=== PATIENT | female | born 1970 | race Caucasian/White ===

== ENCOUNTER 2019-07-04 07:49 | Day surgery (SDC) | payer OTHER ==
--- NOTE | 2019-07-03 14:27 | PCM.PREANE ---
Preanesthetic Assessment - Anesthesia/Transfusion/Family Hx Anesthesia History: Prior Anesthesia Without Reaction Family History of Anesthesia Reaction: No Transfusion History: No Prior Transfusion(s) Intubation History: Unknown - Review of Systems General: No Symptoms Pulmonary: No Symptoms (ETOH: occasionally) Cardiovascular: No Symptoms (History of HTN) Gastrointestinal: No Symptoms Neurological: No Symptoms, Headache Other: Reports: Thyroid Problems (Hypothyroid, Chiquita's thyroiditis, thyroid nodule) - Physical Assessment NPO Status Date: 07/03/19 NPO Status Time: 03:00 Vital Signs: HR:86 BP:130/82 Sat:100% Resp:16 Temp:97.9 Height: 1.7 m Weight: 107.501 kg ASA Class: 2 Mental Status: Alert & Oriented x3 Airway Class: Mallampati = 2 Dentition: Reports: Normal Dentition, Caries Thyro-Mental Finger Breadths: 3 Mouth Opening Finger Breadths: 3 ROM/Head Extension: Full Lungs: Clear to Auscultation, Normal Respiratory Effort Cardiovascular: Regular Rate, Regular Rhythm, No Murmurs - Lab Values: All labs reviewed and noted and within acceptable ranges to proceed with scheduled procedure. - Allergies Allergies/Adverse Reactions: Allergies Allergy/AdvReac Type Severity Reaction Status Date / Time No Known Allergies Allergy Verified 07/03/19 14:44 - Anesthesia Plan Pre-Op Medication Ordered: None - Acknowledgements Anesthesia Type Planned: MAC Pt an Appropriate Candidate for the Planned Anesthesia: Yes Alternatives and Risks of Anesthesia Discussed w Pt/Guardian: Yes Pt/Guardian Understands and Agrees with Anesthesia Plan: Yes PreAnesthesia Questionnaire - HOME MEDS Home Medications: Home Meds Cholecalciferol (Vitamin D3) [Vitamin D3] 1,000 unit PO DAILY 07/03/19 [History] Lactobacillus Combination No.4 [Probiotic] 1 cap PO DAILY 07/03/19 [History] Levothyroxine Sodium [Levoxyl] 50 mcg PO DAILY 07/03/19 [History] Losartan Potassium 50 mg PO DAILY 07/03/19 [History] Magnesium 250 mg PO DAILY 07/03/19 [History] Multivitamin [Daily Deanne] 1 tab PO DAILY 07/03/19 [History] Selenium 100 mcg PO DAILY 07/03/19 [History] Thiamine HCl [Vitamin B-1] 100 mg PO DAILY 07/03/19 [History] atorvaSTATin [Lipitor] 10 mg PO DAILY 07/03/19 [History] - CURRENT (IN HOUSE) MEDS Current Meds: Current Medications Lactated Ringer's (Ringers, Lactated) 1,000 mls @ 125 mls/hr IV ASDIRECTED MATTI Stop: 07/04/19 23:00 Lidocaine/Sodium Bicarbonate (Buffered Lidocaine 1% In Ns 8.4%) 0.25 ml IDERM ONETIME PRN PRN Reason: Prior to IV Start Stop: 07/04/19 18:00 Sodium Chloride (Saline Flush) 10 ml FLUSH ASDIRECTED PRN PRN Reason: Keep Vein Open Stop: 07/04/19 18:00
[~2019-07-04 07:49] MED LIST: Lactated Ringers 1,000 ML IV SCH; Lidocaine 1% 6 ML ONE; Lidocaine 1%/Sod Bicarbonate in NS 8.4% 1 ML Syringe IDERM PRN; Propofol 200 MG/20 ML SDV ONE; Sodium Chloride 0.9% 10 ML Syringe FLUSH PRN; fentaNYL 100 MCG/2 ML SDV ONE
--- NOTE | 2019-07-04 07:58 | PCM.HP.2 ---
H&P History of Present Illness - General Date of Service: 07/04/19 Admit Problem/Dx: due for screening colonoscopy History Limitations: Reports: No Limitations - History of Present Illness Other HPI/Comments: no interval change since clinic visit last month- presents today for routine screening colonoscopy. - Related Data Allergies/Adverse Reactions: Allergies Allergy/AdvReac Type Severity Reaction Status Date / Time No Known Allergies Allergy Verified 07/03/19 14:44 Home Medications: Home Meds Cholecalciferol (Vitamin D3) [Vitamin D3] 1,000 unit PO DAILY 07/03/19 [History] Lactobacillus Combination No.4 [Probiotic] 1 cap PO DAILY 07/03/19 [History] Levothyroxine Sodium [Levoxyl] 50 mcg PO DAILY 07/03/19 [History] Losartan Potassium 50 mg PO DAILY 07/03/19 [History] Magnesium 250 mg PO DAILY 07/03/19 [History] Multivitamin [Daily Deanne] 1 tab PO DAILY 07/03/19 [History] Selenium 100 mcg PO DAILY 07/03/19 [History] Thiamine HCl [Vitamin B-1] 100 mg PO DAILY 07/03/19 [History] atorvaSTATin [Lipitor] 10 mg PO DAILY 07/03/19 [History] Past Medical History HEENT History: Reports: Impaired Vision Other HEENT History: wears glasses Cardiovascular History: Reports: High Cholesterol, Hypertension Respiratory History: Reports: None Gastrointestinal History: Reports: None Genitourinary History: Reports: Other (See Below) Other Genitourinary History: right breast mass, breast nodule, menorrhagia GANG RIDER History: Reports: Endometrial Ablation, Musculoskeletal History: Reports: None Neurological History: Reports: None Psychiatric History: Reports: None Endocrine/Metabolic History: Reports: Other (See Below) Other Endocrine/Metabolic History: hashimotos thyroiditis, thyroid nodule, thyromegaly Hematologic History: Reports: None Immunologic History: Reports: None Oncologic (Cancer) History: Reports: None Dermatologic History: Reports: Other (See Below) Other Dermatologic History: skin mass - Past Surgical History Head Surgeries/Procedures: Reports: None Cardiovascular Surgical History: Reports: None Respiratory Surgical History: Reports: None GI Surgical History: Reports: None Female Surgical History: Reports: Section Male Surgical History: Reports: None Endocrine Surgical History: Reports: None Neurological Surgical History: Reports: None Musculoskeletal Surgical History: Reports: None Oncologic Surgical History: Reports: None Dermatological Surgical History: Reports: None Social & Family History - Tobacco Use Smoking Status *Q: Never Smoker - Caffeine Use Caffeine Use: Reports: Coffee - Recreational Drug Use Recreational Drug Use: No Drug Use in Last 12 Months: No H&P Review of Systems - Review of Systems: Review Of Systems: See Below General: Reports: No Symptoms HEENT: Reports: No Symptoms Pulmonary: Reports: No Symptoms Cardiovascular: Reports: No Symptoms Gastrointestinal: Reports: No Symptoms Skin: Reports: No Symptoms Psychiatric: Reports: No Symptoms Neurological: Reports: No Symptoms Exam - Exam Exam: See Below - Exam General: Alert, Oriented HEENT: Conjunctiva Clear Neck: Supple Lungs: Clear to Auscultation Cardiovascular: Regular Rate Back Exam: Normal Inspection Extremities: Normal Inspection Skin: Warm, Dry Neuro Extensive - Mental Status: Alert, Oriented x3 Psychiatric: Normal Mood *Q Meaningful Use (ADM) - VTE Risk Assess *Q Each Risk Factor Represents 1 Point: Age 41 - 59 years Total Score 1 Point Risk Factors: 1 Problem List Initiated/Reviewed/Updated: Yes Orders Last 24hrs: Active Orders 24 hr Category Date Time Status EKG Documentation Completion [RC] URGENT Care 07/04/19 07:00 Active Peripheral IV Care [RC] . DIRECTED Care 07/04/19 07:21 Active Verify Patient Consent Obtain [RC] ASDIRECTED Care 07/04/19 07:21 Active Lactated Ringers [Ringers, Lactated] 1,000 ml Med 07/04/19 07:21 Active IV ASDIRECTED Lidocaine 1%/Sod Bicarbonate [Buffered Lidocaine 1% in Med 07/04/19 07:21 Active NS 8.4%] 0.25 ml IDERM ONETIME PRN Sodium Chloride 0.9% [Saline Flush] Med 07/04/19 07:21 Active 10 ml FLUSH ASDIRECTED PRN Medication Administration Instruction [OM.PC] Routine Oth 07/04/19 07:21 Ordered Peripheral IV Insertion Adult [OM.PC] Routine Oth 07/04/19 07:21 Ordered Medication Orders Lactated Ringer's (Ringers, Lactated) 1,000 mls @ 125 mls/hr IV ASDIRECTED MATTI Stop: 07/04/19 23:00 Lidocaine/Sodium Bicarbonate (Buffered Lidocaine 1% In Ns 8.4%) 0.25 ml IDERM ONETIME PRN PRN Reason: Prior to IV Start Stop: 07/04/19 18:00 Sodium Chloride (Saline Flush) 10 ml FLUSH ASDIRECTED PRN PRN Reason: Keep Vein Open Stop: 07/04/19 18:00 Assessment/Plan Comment:: screening colonoscopy today - Mortality Measure Prognosis:: Good
[2019-07-04] MEDS ORDERED: Propofol 200 MG/20 ML SDV ONE ×2 (08:52→09:13)
[2019-07-04] MEDS ORDERED: ePHEDrine/Normal Saline 25 MG/5 ML Syringe ONE (09:07)
--- NOTE | 2019-07-04 09:37 | PCM48HPAN ---
Post Anesthesia Note - EVALUATION WITHIN 48HRS OF ANESTHETIC Vital Signs in Normal Range: Yes Patient Participated in Evaluation: Yes Respiratory Function Stable: Yes Airway Patent: Yes Cardiovascular Function Stable: Yes Hydration Status Stable: Yes Pain Control Satisfactory: Yes Nausea and Vomiting Control Satisfactory: Yes Mental Status Recovered: Yes Vital Signs: Last Vital Signs Temp 97.5 07/04/19 09 Pulse 102 07/04/19 0928 Resp 22 07/04/19927 BP 126/77 07/04/19927 Pulse Ox 92% 07/04/19927
[2019-07-04] MEDS ORDERED: Simethicone 80 MG Tab.Chew PO STA (09:45)
--- NOTE | 2019-07-04 12:43 | CR ---
Chest: Portable view of the chest was obtained. Comparison: No prior chest imaging is available. Heart size and mediastinum are within normal limits for portable technique. Lungs are clear with no acute parenchymal change. No free air is seen beneath the hemidiaphragms. Bony structures are grossly intact. Impression: 1. Nothing acute is seen on portable chest x-ray. Diagnostic code #1 This report was dictated in [place] Standard Time
== END 2019-07-04 12:15 | disposition home or self-care (01) ==
LOC: JD.SDS 07:49
PROVIDERS: ATTEND Surgery
DX: Z12.11 Encounter for screening for malignant neoplasm of colon (principal); D12.0 Benign neoplasm of cecum; K63.89 Other specified diseases of intestine; K64.4 Residual hemorrhoidal skin tags; I10 Essential (primary) hypertension; E78.00 Pure hypercholesterolemia, unspecified; E06.3 Autoimmune thyroiditis; E04.1 Nontoxic single thyroid nodule; Z79.899 Other long term (current) drug therapy
CPT/HCPCS: 45380; 71045; A9270; J2001; J2704; J3010; J7050; J7120

== ENCOUNTER 2023-04-28 14:29 | Emergency (ER) | payer OTHER | END 2023-04-28 16:03 | disposition home or self-care (01) | LOC: JD.ED 14:29 | DX: B02.9 Zoster without complications (principal); E78.00 Pure hypercholesterolemia, unspecified; I10 Essential (primary) hypertension; Z98.890 Other specified postprocedural states; Z79.899 Other long term (current) drug therapy | CPT/HCPCS: 99282; 99283 ==